=== PATIENT | male | born 1995 | race Caucasian/White ===

== ENCOUNTER 2022-12-12 17:09 | Emergency (ER) | payer OTHER ==
--- NOTE | 2022-12-12 17:15 | ED Physician Documentation ---
PD HPI SKIN - Stated complaint Stated Complaint: RASH - History obtained from History obtained from: Patient - Additional information Additional information: 27-year-old gentleman with history of asthma presents with 2 Months of worsening painful rash focused in the left groin and buttock but spreading to the right. He was initially seen and put on triamcinolone for it which was not helpful. Subsequently went [facility] about 4 days ago and was placed on Keflex, continues to worsen. No fevers. PD PAST MEDICAL HISTORY - Present Medications Home Medications: Ambulatory Orders Medication Instructions Recorded Confirmed Terbinafine [Lamisil] 250 mg PO DAILY #14 tablet 12/12/22 Tolnaftate 4 gm TP BID #240 gm 12/12/22 - Allergies Allergies/Adverse Reactions: Allergies Allergy/AdvReac Type Severity Reaction Status Date / Time clindamycin Allergy Unknown Verified 12/12/22 17:24 erythromycin base Allergy Unknown Verified 12/12/22 17:24 Macrolide Antibiotics Allergy Unknown Verified 12/12/22 17:24 Sulfa (Sulfonamide Allergy Unknown Verified 12/12/22 17:24 Antibiotics) PD ED PE NORMAL - Vitals Vital signs reviewed: Yes - General General: Alert and oriented X 3, No acute distress - Derm Derm: Other (Scaly rash with areas of central clearing mostly on the left buttock, but also the left intertriginous area, a little bit in the gluteal folds and right buttock.) - Neuro Neuro: Alert and oriented X 3, Normal speech Results - Vitals Vitals: Vital Signs - 24 hr 12/12/22 17:17 Temperature 36.9 C Heart Rate 87 Respiratory 14 Rate Blood Pressure 149/84 H O2 Saturation 96 Oxygen O2 Source Room air PD Medical Decision Making - ED course ED course: This looks most like tinea to me which would explain why the previous treatments have not been helping. Departure - Departure Disposition: 01 Home, Self Care Clinical Impression: Tinea corporis Condition: Good Record reviewed to determine appropriate education?: Yes Instructions: ED Infec Skin Fungal Tinea Prescriptions: Terbinafine [Lamisil] 250 mg PO DAILY #14 tablet Tolnaftate 4 gm TP BID #240 gm Comments: As discussed, this looks like a tinea infection. If not improving over the next week or so it is reasonable to follow-up with a propellant assembler. 1 option would be Karley Bellamy, . Return if worse. Discharge Date/Time: 12/12/22 17:41
[2022-12-12] MEDS ORDERED: TERBINAFINE 250 MG TABLET PO STA (17:21)
[2022-12-12 17:22] VITALS: BP 149/84
== END 2022-12-12 17:41 | disposition home or self-care (01) ==
LOC: ED 17:09
DX: B35.4 Tinea corporis (principal)
CPT/HCPCS: 99282; 99283; A9270